=== PATIENT | male | born 1960 | race Caucasian/White ===

== ENCOUNTER 2022-03-21 08:03 | Outpatient (CLI) | payer BC, SELFPAY ==
--- NOTE | 2022-03-21 08:15 | CRLHL7_ITS ---
For Patients: As a result of the Century Cures Act, medical imaging exams and procedure reports are released immediately into your electronic medical record. You may view this report before your referring provider. If you have questions, please contact your health care provider. Technique: Double-contrast esophagram performed after the uneventful administration of effervescent crystals and thick barium followed by thin barium. Fluoroscopy time 58 seconds. Indication: esophageal dysphagia Comparison: None. Findings: There is residual food products within the distal esophagus. Narrowing of the distal esophageal lumen is present measuring between 7-10 millimeters. Barium tablet does not pass through this area. There is a small hernia below this area of narrowing. Spontaneous reflux is present. Esophageal motility is diminished. The margins of stricture/narrowing are somewhat irregular. Impression: Distal esophageal stricture, possibly due to achalasia, rule out malignancy. Recommend EGD for further evaluation. Dictated by Gene Xiao MD @ 03/21/2022 9:35:12 AM (Electronically Signed)
== END 2022-03-21 08:04 | disposition home or self-care (01) ==
PROVIDERS: PCP Nurse Practitioner Family; Visit Provider Physician Assistant
DX: R13.19 Other dysphagia (principal)
CPT/HCPCS: 74221